=== PATIENT | male | born 1980 | race Caucasian/White ===

== ENCOUNTER → 2021-10-02 | Outpatient (CLI) | payer OTHER | LOC: M SLEEP 20:00 | PROVIDERS: ATTEND Nurse Practitioner Family | DX: R06.83 Snoring (principal) ==

== ENCOUNTER → 2022-03-27 | Outpatient (CLI) | payer OTHER | LOC: M SLEEP 20:00 | PROVIDERS: ATTEND Nurse Practitioner Family | DX: G47.33 Obstructive sleep apnea (adult) (pediatric) (principal) ==

== ENCOUNTER → 2023-04-13 | Outpatient (CLI) | payer OTHER | LOC: M WUC 12:08 | PROVIDERS: ATTEND Physician Assistant | DX: R06.02 Shortness of breath (principal); J01.90 Acute sinusitis, unspecified ==